=== PATIENT | female | born 1955 | race Caucasian/White ===

== ENCOUNTER 2016-09-25 19:46 | Emergency (ER) | payer MEDICAID ==
--- NOTE | 2016-09-25 20:10 | ED Physician Chart ---
Chief Complaint/HPI - Patient Information Date Seen:: 09/25/16 Time Seen:: 20:00 Chief Complaint:: possible urinary tract infection and agitation History of Present Illness:: Patient was sent from her care home facility here for possible urinary tract infection and agitation. She states she feels fine. She has no medical complaint. She wants to return to her facility. Historian:: Patient, EMS Review of Systems - Review of Systems General/Constitutional: No fever, No chills Skin: No skin lesions Head: No headache Eyes: No loss of vision ENT: No earache Neck: No neck pain, No swelling Cardio Vascular: No chest pain, No palpitations Pulmonary: No SOB GI: No nausea, No vomiting G/U: No dysuria Musculoskeletal: No bone or joint pain, No back pain Psychiatric: Prior psych history Hematopoietic: No bruising, No lymphadenopathy Neurological: No syncope, No headache Past Medical History - Past Medical History Past Medical History: HTN, DM, Thyroid disorder, Other (anemia ;) Family History: Other (anemia; hypothyroidism; depression; psychosis; cardiomyopathy) Social History: Smoker, Care Facility Surgical History: Psychiatricy History: Other (psychosis) Medication: Reviewed Family Medical History - Family Member Mother History Unknown: Yes Physical Exam - Physical Examination General/Constitutional: Well-developed, well-nourished, Alert, No distress Head: Atraumatic Eyes: Lids, conjuctiva normal, PERRL Skin: Nl inspection, No rash, No skin lesions, No ecchymosis ENMT: External ears, nose nl, TM canals nl, Nasal exam nl, Lips, teeth, gums nl , Oropharynx nl, Tonsils nl Neck: No stridor Respiratory: Nl effort/Exclusion, Clear to Auscultation, No Wheeze/Rhonchi/Rales Cardio Vascular: RRR, No murmur, gallop, rubs GI: No tenderness/rebounding/guarding, No organomegaly, No hernia, Normal BS's : No CVA tenderness Extremities: No tenderness or effusion, Full ROM Neuro/Psych: Alert/oriented, No focal deficits Labs/Radiology/EKG Results - Radiology Results Results: Laboratory Results - last 24 hr 09/25/16 09/25/16 20:13 20:13 WBC 11.4 H RBC 4.50 Hgb 12.9 Hct 38.8 MCV 86.4 MCH 28.8 MCHC Differential 33.3 RDW 12.5 Plt Count 237 MPV 9.1 Neutrophils % 56.3 Lymphocytes % 33.4 Monocytes % 6.9 Eosinophils % 3.1 Basophils % 0.3 Sodium 136 Potassium 4.2 Chloride 107 Carbon Dioxide 20.8 L Anion Gap 12.4 BUN 36 H Creatinine 1.6 H Est GFR ( Amer) 42.1 Est GFR (Non-Af Amer) 34.8 BUN/Creatinine Ratio 22.5 Glucose 88 Calcium 10.2 Laboratory Results - last 24 hr 09/25/16 09/25/16 20:13 20:13 WBC 11.4 H RBC 4.50 Hgb 12.9 Hct 38.8 MCV 86.4 MCH 28.8 MCHC Differential 33.3 RDW 12.5 Plt Count 237 MPV 9.1 Neutrophils % 56.3 Lymphocytes % 33.4 Monocytes % 6.9 Eosinophils % 3.1 Basophils % 0.3 Sodium 136 Potassium 4.2 Chloride 107 Carbon Dioxide 20.8 L Anion Gap 12.4 BUN 36 H Creatinine 1.6 H Est GFR ( Amer) 42.1 Est GFR (Non-Af Amer) 34.8 BUN/Creatinine Ratio 22.5 Glucose 88 Calcium 10.2 Assessment - Assessment General Assessment: talked to Dr. Heath at 2242 and he felt patient can return to her facility. Patient does not appear to have a urinary tract infection. ED Septic Shock - . Is Septic Shock (SBP<90, OR Lactate>4 mmol\L) present?: No Reassessment (Disposition) - Reassessment Reassessment Condition:: Unchanged - Diagnosis Diagnosis:: Agitation - Patient Disposition Discharge/Transfer:: Snf Care - SNF Condition at Disposition:: Stable, Unchanged
[2016-09-25 20:18] LABS: % BASOPHILS 0.3 % (0.0-2.0); % EOSINOPHILS 3.1 % (0.0-5.0); % LYMPHOCYTES 33.4 % (20.0-50.0); % MONOCYTES 6.9 % (2.0-10.0); % NEUTROPHILS 56.3 % (40.0-80.0); HEMATOCRIT 38.8 % (35.0-45.0); HEMOGLOBIN 12.9 gm/dL (11.7-15.5); MEAN CELL VOLUME 86.4 fl (81-100); MEAN CORPUSCULAR HEMOGLOBIN 28.8 pg (27.0-31.0); MEAN CORPUSCULAR HGB CONC 33.3 pg (28.0-36.0); MEAN PLATELET VOLUME 9.1 fl; NEUTROPHILE ABSOLUTE 6.4 Th/cmm (1.8-8.0); PLATELET COUNT 237 Th/cmm (150-400); RED CELL DISTRIBUTION WIDTH 12.5 % (11.5-20.0); WHITE BLOOD COUNT 11.4 Th/cmm (4.8-10.8)
[2016-09-25 20:34] LABS: ANION GAP 12.4 (7.0-16.0); BUN/CREATININE RATIO 22.5; CALCIUM SERUM 10.2 mg/dL (8.6-10.3); CARBON DIOXIDE 20.8 mEq/L (21.0-31.0); CREATININE - SERUM 1.6 mg/dL (0.6-1.2); POTASSIUM SERUM 4.2 mEq/L (3.5-5.1)
[2016-09-25 21:58] LABS: URINE BILIRUBIN SMALL (NEGATIVE); URINE BLOOD NEGATIVE (NEGATIVE); URINE COLOR YELLOW; URINE GLUCOSE (UA) NEGATIVE (NEGATIVE); URINE KETONE TRACE mg/dL (NEGATIVE); URINE PROTEIN 30 mg/dL (NEGATIVE); URINE UROBILINOGEN 0.2 E.U./dL (0.2 - 1.0)
[2016-09-25 21:59] LABS: URINE BACTERIA NONE SEEN /hpf (NONE SEEN); URINE EPITHELIAL CELLS FEW /lpf (FEW); URINE RBC NONE SEEN /hpf (0-5)
== END 2016-09-25 23:30 ==
LOC: ER 19:46
DX: R45.1 Restlessness and agitation (principal); I10 Essential (primary) hypertension; E11.9 Type 2 diabetes mellitus without complications; E07.9 Disorder of thyroid, unspecified; F17.200 Nicotine dependence, unspecified, uncomplicated
CPT/HCPCS: 36415-UA; 80048-TC; 81001-TC; 85025-TC; Z7502; Z7610

== ENCOUNTER 2016-11-20 17:19 | Inpatient (IN) | payer MEDICAID, OTHER ==
--- NOTE | 2016-11-20 17:48 | ED Physician Chart ---
Chief Complaint/HPI - Patient Information Date Seen:: 11/20/16 Time Seen:: 17:35 Chief Complaint:: generalized weakness and increasing confusion History of Present Illness:: [facility] for generalized weakness and increasing confusion. Patient complains of a mass in her right breast Allergies:: Allergies Allergy/AdvReac Type Severity Reaction Status Date / Time No Known Allergies Allergy Verified 09/25/16 20:27 Historian:: Patient Review:: Nurse's Note Reviewed Review of Systems - Review of Systems General/Constitutional: No fever, No chills, Weakness Skin: No skin lesions Head: No headache Eyes: No loss of vision ENT: No earache Neck: No neck pain, No swelling Cardio Vascular: No chest pain, No palpitations Pulmonary: No SOB GI: No nausea G/U: No dysuria Musculoskeletal: No bone or joint pain Endocrine: No polyuria Psychiatric: Prior psych history Past Medical History - Past Medical History Past Medical History: HTN, DM, Dyslipidemia, Other (anemia; hypothyroidism; major depression; psychosis; cardiomyopathy; breast implant) Family History: Other (unavailable; patient is confused) Social History: Smoker, Care Facility Surgical History: other (facial cosmetic surgery; breast implants; tubal ligation ) Psychiatricy History: Depression Medication: Reviewed Family Medical History - Family Member Mother History Unknown: Yes Physical Exam - Physical Examination General/Constitutional: Well-developed, well-nourished, Alert, No distress Other Gen/Cons comments:: Patient is confused. She does not know the correct year. Head: Atraumatic Eyes: Lids, conjuctiva normal, PERRL Skin: No rash, No skin lesions, No ecchymosis Other Skin comments:: Implant right breast appears to be in a superior position ENMT: External ears, nose nl, Lips, teeth, gums nl, Oropharynx nl Neck: No nuchal rigidity Respiratory: Nl effort/Exclusion, Clear to Auscultation Cardio Vascular: RRR, No murmur, gallop, rubs GI: No tenderness/rebounding/guarding : No CVA tenderness Extremities: No tenderness or effusion Neuro/Psych: No focal deficits Misc: No paraspinal tenderness Labs/Radiology/EKG Results - Lab Results Comments:: Laboratory Results - last 24 hr 11/20/16 11/20/16 11/20/16 18:00 18:00 18:00 WBC 10.6 RBC 3.81 Hgb 11.4 L Hct 33.0 L D MCV 86.8 MCH 29.9 MCHC Differential 34.5 RDW 13.2 Plt Count 190 MPV 10.5 Neutrophils % 55.1 Lymphocytes % 33.9 Monocytes % 9.6 Eosinophils % 1.0 Basophils % 0.4 Sodium 139 Potassium 3.8 Chloride 110 H Carbon Dioxide 21.0 Anion Gap 11.8 BUN 40 H Creatinine 1.1 Est GFR ( Amer) > 60.0 Est GFR (Non-Af Amer) 53.7 BUN/Creatinine Ratio 36.4 Glucose 80 Calcium 9.9 Total Bilirubin 0.4 AST 19 ALT 16 Alkaline Phosphatase 55 Ammonia 40 Total Protein 7.5 Albumin 4.3 Globulin 3.2 Albumin/Globulin Ratio 1.3 TSH 18.95 H Urine Source Urine Color Urine Clarity Urine pH Ur Specific [place] Urine Protein Urine Glucose (UA) Urine Ketones Urine Blood Urine Nitrate Urine Bilirubin Urine Urobilinogen Ur Leukocyte Esterase Urine RBC Urine WBC Ur Epithelial Cells Urine Bacteria 11/20/16 18:30 WBC RBC Hgb Hct MCV MCH MCHC Differential RDW Plt Count MPV Neutrophils % Lymphocytes % Monocytes % Eosinophils % Basophils % Sodium Potassium Chloride Carbon Dioxide Anion Gap BUN Creatinine Est GFR ( Amer) Est GFR (Non-Af Amer) BUN/Creatinine Ratio Glucose Calcium Total Bilirubin AST ALT Alkaline Phosphatase Ammonia Total Protein Albumin Globulin Albumin/Globulin Ratio TSH Urine Source RANDOM Urine Color YELLOW Urine Clarity SLIGHT CLOUDY Urine pH 5.5 Ur Specific [place] 1.025 Urine Protein TRACE Urine Glucose (UA) NEGATIVE Urine Ketones NEGATIVE Urine Blood NEGATIVE Urine Nitrate POSITIVE H Urine Bilirubin NEGATIVE Urine Urobilinogen 1.0 Ur Leukocyte Esterase TRACE H Urine RBC NONE SEEN Urine WBC 2-5 Ur Epithelial Cells NONE SEEN Urine Bacteria MANY - Radiology Results Results: CXR negative; CT head atrophy - EKG Interpretations Rate & Rhythm: sinus tach; rate 192; normal axis; frequent unfocal PVCs. Assessment - Assessment General Assessment: Patient agitated in the ED. Had to be given ativan 2 mg IV x 2 to sedate her. ED Septic Shock - . Is Septic Shock (SBP<90, OR Lactate>4 mmol\L) present?: No Reassessment (Disposition) - Reassessment Reassessment Condition:: Improved - Diagnosis Diagnosis:: dementia with agitation; hypothyroidism; frequent PVCs - Patient Disposition Admitted to:: Telemetry Spoke to:: Andrews Oscar Admitting Medical Physician:: Andrews Oscar Condition at Disposition:: Stable, Improved
[2016-11-20 18:13] LABS: % BASOPHILS 0.4 % (0.0-2.0); % LYMPHOCYTES 33.9 % (20.0-50.0); % MONOCYTES 9.6 % (2.0-10.0); % NEUTROPHILS 55.1 % (40.0-80.0); HEMOGLOBIN 11.4 gm/dL (11.7-15.5); MEAN CELL VOLUME 86.8 fl (81-100); MEAN CORPUSCULAR HEMOGLOBIN 29.9 pg (27.0-31.0); MEAN CORPUSCULAR HGB CONC 34.5 pg (28.0-36.0); MEAN PLATELET VOLUME 10.5 fl; NEUTROPHILE ABSOLUTE 5.9 Th/cmm (1.8-8.0); PLATELET COUNT 190 Th/cmm (150-400); RED BLOOD COUNT 3.81 Mil/cmm (3.80-5.10); RED CELL DISTRIBUTION WIDTH 13.2 % (11.5-20.0); WHITE BLOOD COUNT 10.6 Th/cmm (4.8-10.8)
[2016-11-20 18:32] LABS: ALB/GLOB RATIO 1.3 (1.0-1.8); ALKALINE PHOSPHATASE 55 U/L (34-104); ANION GAP 11.8 (7.0-16.0); BILIRUBIN,TOTAL 0.4 mg/dL (0.3-1.0); BUN - UREA NITROGEN 40 mg/dL (7-25); BUN/CREATININE RATIO 36.4; CALCIUM SERUM 9.9 mg/dL (8.6-10.3); CHLORIDE 110 mEq/L (98-107); CREATININE - SERUM 1.1 mg/dL (0.6-1.2); GLUCOSE 80 mg/dL (70-105); POTASSIUM SERUM 3.8 mEq/L (3.5-5.1); SGOT 19 U/L (13-39); SGPT/ALT 16 U/L (7-52); SODIUM SERUM 139 mEq/L (136-145)
[2016-11-20 18:57] LABS: URINE BILIRUBIN NEGATIVE (NEGATIVE); URINE BLOOD NEGATIVE (NEGATIVE); URINE GLUCOSE (UA) NEGATIVE (NEGATIVE); URINE KETONE NEGATIVE (NEGATIVE); URINE PH 5.5 (4.6 - 8.0); URINE PROTEIN TRACE mg/dL (NEGATIVE)
[2016-11-20 18:59] LABS: URINE COLOR YELLOW
[2016-11-20 19:01] LABS: URINE BACTERIA MANY /hpf (NONE SEEN); URINE EPITHELIAL CELLS NONE SEEN /lpf (FEW); URINE RBC NONE SEEN /hpf (0-5)
[2016-11-20 19:12] LABS: TSH 18.95 uIU/ml (0.34-5.60)
[2016-11-20] MEDS ORDERED: Fleet Enema 135 mL RC PRN (22:54)
[2016-11-20] MEDS ORDERED: Magnesium Hydroxide (MOM) 30 mL UDC PO PRN (22:54)
[2016-11-20] MEDS ORDERED: guaiFENesin 200 MG/10 ML UDC PO PRN (22:58)
[2016-11-20] MEDS ORDERED: Albuterol Nebulizer 2.5mg/3mL HHN PRN (22:58)
[2016-11-20] MEDS ORDERED: Ipratropium Neb 0.5 mg/2.5 mL UD IH PRN (22:58)
[2016-11-20] MEDS ORDERED: Maalox 30 mL Cup PO PRN (22:58)
[2016-11-21] MEDS: D5-0.9%NS 1,000 ML IV SCH ×2 (02:21→21:12)
[2016-11-21 05:07] VITALS: BP 108/56
--- NOTE | 2016-11-21 08:30 | Diagnostic Imaging Report ---
Portable chest x-ray Time: 1842 History: Pneumonia Allowing for portable technique the heart size is normal. No focal pulmonary parenchymal processes. No hilar or mediastinal abnormalities. Impression: No acute abnormalities.
[2016-11-21] MEDS: Aspirin 81mg Chewable Tab PO SCH (08:47)
--- NOTE | 2016-11-21 09:28 | Diagnostic Imaging Report ---
CT scan of the brain without intravenous contrast HISTORY: Stroke, CVA Total DLP equals 540 CTDI equals 30.5 Axial sections were obtained from the base of the skull to the vertex. There is enlargement of the ventricular system along with enlargement of cerebral sulci and subarachnoid cisterns reflecting generalized atrophy. Hypodensity is noted throughout the supratentorial white matter regions without mass effect. The findings may be associated with chronic small vessel ischemic disease. Somewhat more discrete hypodense focus noted in the left basal ganglia region that may be associated with an old lacunar infarct. No acute intracerebral hemorrhage. No extra-axial masses or abnormal fluid collections. IMPRESSION: 1. No acute abnormalities 2. Cerebral atrophy 3. Supratentorial white matter changes that may reflect chronic small vessel ischemic disease. If needed, a follow-up MRI exam would be helpful for further assessment. 4. Somewhat more discrete focus in the left basal ganglia region that may be associated with old lacunar infarct.
--- NOTE | 2016-11-21 18:13 | History & Physical ---
ADMIT DATE: 11/21/2016 CHIEF COMPLAINT: Increasing agitation, generalized weakness, not eating. HISTORY OF PRESENT ILLNESS: This is a 61-year-old female with history of schizoaffective disorder, history of stroke, hypothyroidism, who was admitted from nursing facility secondary to increasing agitation. The patient was evaluated in the ER and noted to have a UTI and frequent PVCs. The patient is a poor historian, agitated, yelling. PAST MEDICAL HISTORY: As mentioned in history present illness. PAST SURGICAL HISTORY: Unable to obtain. ALLERGIES: No known drug allergies. MEDICATIONS: Tylenol, aspirin, albuterol, Atrovent, Colace, ibuprofen, Zyprexa, senna. FAMILY HISTORY: Noncontributory. SOCIAL HISTORY: The [facility] patient requiring 24-hour total care. REVIEW OF SYSTEMS: This is limited secondary to the patient's current mental state. We will try to obtain more detailed review of systems at a later date via daughter and family members. There is ____ daughter [phone]. Also, try to get information from nursing staff and try [phone]. Also, try to get information from Dr. Heath who was attended the patient previously. PHYSICAL EXAMINATION: VITAL SIGNS: Blood pressure ____, respirations 18, pulse 58, temperature is 71. GENERAL: Elderly female, appears chronically ill. NECK: Supple. No mass. LUNGS: Decreased breath sounds, few rhonchi. HEART: Regular rate and rhythm without appreciable murmurs. ABDOMEN: Soft, nontender. EXTREMITIES: Positive excoriation. LABORATORY DATA: WBC 10.6, hemoglobin 11.4, platelets 190. Sodium 139, potassium 3.8, BUN 14, creatinine 1.1. TSH 18. UA: Positive esterase and nitrate and many bacteria. ASSESSMENT AND PLAN: Urinary tract infection, cardiac arrhythmia, generalized weakness, agitation, anemia, dehydration, renal failure, hypothyroidism, history of stroke, schizoaffective disorder. We will continue the patient on IV hydration and antibiotic. We will refer the patient to Psych as well as Cardiology. We will perform 2D echo. Continue with current care with followup consult and recommendations. JOB# [id number]
--- NOTE | 2016-11-22 01:50 | Consultation ---
DATE OF CONSULTATION: 11/21/2016 PATIENT OF: Dr. Oscar. HISTORY AND PHYSICAL: This is a 61-year-old female patient who has schizophrenia. The patient has agitation. Following this, the patient was brought to the Emergency Room. The patient was found to have PVCs and urinary tract infection, hence the patient was admitted. PAST MEDICAL HISTORY: Dementia, hypothyroid, CVA with late effect schizoaffective disorder. FAMILY HISTORY: Unremarkable. SOCIAL HISTORY: No history of smoking, alcohol abuse. ALLERGIES: None. PHYSICAL EXAMINATION: VITAL SIGNS: Blood pressure 130/80, pulse 70 irregular, respirations 20. HEAD: Normocephalic. No lumps or bumps. EYES: Pupils equal, reactive to light. Fundi show AV nicking, sclerae white, conjunctivae pink. NECK: Carotid 2+. Normal upstroke. JVD flat. Thyroid not palpable. NODES: Lymph nodes not palpable. CHEST: Shows increased AP diameter. No kyphosis, scoliosis. LUNGS: Bilateral bronchovesicular breath sounds. HEART: PMI fifth intercostal space lateral to midclavicular line. S1, S2. No S3, S4. Systolic murmur, grade 2/6, lower left sternal border without radiation. ABDOMEN: Soft. Liver and spleen not palpable. No organomegaly. Bowel sounds active. NEUROLOGIC: Unremarkable. EXTREMITIES: Peripheral pulses 2+. No pedal edema. CLINICAL IMPRESSION: Premature ventricular contractions, hypothyroid, dementia, urinary tract infection, cerebrovascular accident with late effect schizoaffective disorder. PLAN: We will get serum magnesium levels. Start the patient on amiodarone 100 mg b.i.d. and IV antibiotics for urinary tract infection. JOB# [id number]
--- NOTE | 2016-11-22 07:57 | Consultation ---
DATE OF CONSULTATION: 11/21/2016 IDENTIFYING INFORMATION: The patient is a 61-year-old female. HISTORY OF PRESENT ILLNESS: This patient who came, she was very confused. She came because of the lump in her breast. She has been agitated, crying and screaming. When I talked to her, she was yelling at the nursing asking to go home. She was a poor historian, unable to tell me her age. She believes she is 50 years of age. She said she does not pay attention to it when I asked about the date. 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 The patient is unable to participate in a meaningful conversation; however, she was able to tell me some information about her family, but she denies that she wants to harm herself or anybody. PAST PSYCHIATRIC HISTORY: She admits to seeing a psychiatrist, however, she is unable to tell me why. She denies prior suicide attempt. She has a history of substance abuse. Unable to give me details. She is demented and confused. MEDICAL HISTORY: Deferred to the medical doctor. ALLERGIES: The patient has been on Zyprexa 15 mg at bedtime. FAMILY AND SOCIAL HISTORY: The patient reports she is . She has 2 daughters, when asked about them, she said they are 1 year apart. She has been living in a nursing facility. Unable to tell if there is any family psychiatric disorder or substance abuse or legal problem. MENTAL STATUS EXAMINATION: The patient is appropriately dressed, not very well groomed. She is incontinent. She was yelling send me home, unable to tell me at times for self-care or answer questions appropriately, long- and short-term memory is poor. She denies that she will harm herself or anybody, wanting to go home. She has been very confused and agitated. Her insight and judgment is impaired. IMPRESSION: AXIS I: Mood disorder, not otherwise specified. MEDICAL DIAGNOSES: Deferred to Dr. Oscar. I would recommend continue on Zyprexa. The patient knows if continues to be agitated, may need to transfer to [facility]. Thank you very much for allowing me to participate in the care of this most interesting lady. [facility]# [id number]
[2016-11-22] MEDS: Aspirin 81mg Chewable Tab PO SCH (09:42)
[2016-11-22] MEDS ORDERED: Mag Sulfate 2gm/50mL Premix 2 GM/50 ML BAG IV ONE (14:21)
--- NOTE | 2016-11-22 14:24 | Internal Medicine Prog Note ---
Internal Medicine Subjective - Subjective Patient seen and examined:: with staff, chart reviewed Patient is:: awake, verbal, non-interactive, agitated, confused Patient Complaints of:: congestion Per staff patient has:: no adverse event, poor appetite, poor oral intake, agitated, combative, noncompliant, confused, tolerating meds Internal Medicine Objective - Results Result Diagrams: 11/20/16 18:00 11/20/16 18:00 Recent Labs: Laboratory Last Values WBC 10.6 Th/cmm (4.8-10.8) 11/20/16 18:00 RBC 3.81 Mil/cmm (3.80-5.10) 11/20/16 18:00 Hgb 11.4 gm/dL (11.7-15.5) L 11/20/16 18:00 Hct 33.0 % (35.0-45.0) L D 11/20/16 18:00 MCV 86.8 fl (81-100) 11/20/16 18:00 MCH 29.9 pg (27.0-31.0) 11/20/16 18:00 MCHC Differential 34.5 pg (28.0-36.0) 11/20/16 18:00 RDW 13.2 % (11.5-20.0) 11/20/16 18:00 Plt Count 190 Th/cmm (150-400) 11/20/16 18:00 MPV 10.5 fl 11/20/16 18:00 Neutrophils % 55.1 % (40.0-80.0) 11/20/16 18:00 Lymphocytes % 33.9 % (20.0-50.0) 11/20/16 18:00 Monocytes % 9.6 % (2.0-10.0) 11/20/16 18:00 Eosinophils % 1.0 % (0.0-5.0) 11/20/16 18:00 Basophils % 0.4 % (0.0-2.0) 11/20/16 18:00 Sodium 139 mEq/L (136-145) 11/20/16 18:00 Potassium 3.8 mEq/L (3.5-5.1) 11/20/16 18:00 Chloride 110 mEq/L (98-107) H 11/20/16 18:00 Carbon Dioxide 21.0 mEq/L (21.0-31.0) 11/20/16 18:00 Anion Gap 11.8 (7.0-16.0) 11/20/16 18:00 BUN 40 mg/dL (7-25) H 11/20/16 18:00 Creatinine 1.1 mg/dL (0.6-1.2) 11/20/16 18:00 Est GFR ( Amer) > 60.0 ml/min (>90) 11/20/16 18:00 Est GFR (Non-Af Amer) 53.7 ml/min 11/20/16 18:00 BUN/Creatinine Ratio 36.4 11/20/16 18:00 Glucose 80 mg/dL (70-105) 11/20/16 18:00 Calcium 9.9 mg/dL (8.6-10.3) 11/20/16 18:00 Magnesium 1.8 mg/dL (1.9-2.7) L 11/22/16 06:40 Total Bilirubin 0.4 mg/dL (0.3-1.0) 11/20/16 18:00 AST 19 U/L (13-39) 11/20/16 18:00 ALT 16 U/L (7-52) 11/20/16 18:00 Alkaline Phosphatase 55 U/L (34-104) 11/20/16 18:00 Ammonia 40 umol/L (16-53) 11/20/16 18:00 Total Protein 7.5 gm/dL (6.0-8.3) 11/20/16 18:00 Albumin 4.3 gm/dL (3.7-5.3) 11/20/16 18:00 Globulin 3.2 gm/dL 11/20/16 18:00 Albumin/Globulin Ratio 1.3 (1.0-1.8) 11/20/16 18:00 TSH 18.95 uIU/ml (0.34-5.60) H 11/20/16 18:00 Urine Source RANDOM 11/20/16 18:30 Urine Color YELLOW 11/20/16 18:30 Urine Clarity SLIGHT CLOUDY (CLEAR) 11/20/16 18:30 Urine pH 5.5 (4.6 - 8.0) 11/20/16 18:30 Ur Specific [place] 1.025 (1.005-1.030) 11/20/16 18:30 Urine Protein TRACE mg/dL (NEGATIVE) 11/20/16 18:30 Urine Glucose (UA) NEGATIVE mg/dL (NEGATIVE) 11/20/16 18:30 Urine Ketones NEGATIVE mg/dL (NEGATIVE) 11/20/16 18:30 Urine Blood NEGATIVE (NEGATIVE) 11/20/16 18:30 Urine Nitrate POSITIVE (NEGATIVE) H 11/20/16 18:30 Urine Bilirubin NEGATIVE (NEGATIVE) 11/20/16 18:30 Urine Urobilinogen 1.0 E.U./dL (0.2 - 1.0) 11/20/16 18:30 Ur Leukocyte Esterase TRACE (NEGATIVE) H 11/20/16 18:30 Urine RBC NONE SEEN /hpf (0-5) 11/20/16 18:30 Urine WBC 2-5 /hpf (0-5) 11/20/16 18:30 Ur Epithelial Cells NONE SEEN /lpf (FEW) 11/20/16 18:30 Urine Bacteria MANY /hpf (NONE SEEN) 11/20/16 18:30 - Physical Exam Vitals and I&O: Vital Signs Temp 98.0 F 11/22/16 08:00 Pulse 97 11/22/16 08:00 Resp 18 11/22/16 08:00 BP 113/72 11/22/16 08:00 Pulse Ox 97 11/22/16 08:00 Intake & Output 11/21/16 11/22/16 11/22/16 18:59 06:59 18:59 Intake Total 1000 240 Balance 1000 240 Weight (lbs) 65.771 kg 64.864 kg Intake: Intake, IV Amount 1000 D5-0.9%Ns 1,000 ml @ 80 1000 mls/hr IV .[id number] [facility] Rx #:[id number] Oral 240 Other: # Voids 3 # Bowel Movements 0 Stool Characteristics Soft Active Medications: Current Medications Acetaminophen (Tylenol) 650 mg PO Q4H PRN PRN Reason: Pain Or Fever above 101 Stop: 01/19/17 22:57 Last Admin: 11/21/16 15:23 Dose: 650 mg Al Hydrox/Mg Hydrox/Simethicone (Maalox) 30 ml PO Q6H PRN PRN Reason: Dyspepsia Stop: 01/19/17 22:57 Albuterol Sulfate (Albuterol 2.5mg/3ml Neb Ud) 2.5 mg HHN Q2HRT PRN PRN Reason: Shortness of Breath or Wheeze Stop: 01/19/17 22:57 Aspirin (Aspirin Chewable) 81 mg PO DAILY [facility] Stop: 01/20/17 08:59 Last Admin: 11/22/16 09:42 Dose: 81 mg Bisacodyl (Dulcolax 10 Mg Supp) 10 mg RC DAILY PRN PRN Reason: Constipation Stop: 01/19/17 22:53 Divalproex Sodium (Depakote Dr) 500 mg PO BID [facility] PRN Reason: Protocol Stop: 01/20/17 08:59 Last Admin: 11/22/16 09:42 Dose: 500 mg Docusate Sodium (Colace) 100 mg PO DAILY [facility] Stop: 01/20/17 08:59 Last Admin: 11/22/16 09:43 Dose: 100 mg Guaifenesin (Robitussin) 200 mg PO Q4HR PRN PRN Reason: Cough or Congestion Stop: 01/19/17 22:57 Heparin Sodium (Porcine) (Heparin) 5,000 units SUBQ Q12HR [facility] Stop: 01/20/17 08:59 Last Admin: 11/22/16 09:43 Dose: 5,000 units Dextrose/Sodium Chloride (D5-0.9%Ns) 1,000 mls @ 80 mls/hr IV .[id number] [facility] Stop: 01/19/17 22:59 Last Admin: 11/21/16 21:12 Dose: 80 mls/hr Magnesium Sulfate (Magnesium Sulfate Premix) 2 gm in 50 mls @ 25 mls/hr IV X1 ONE Stop: 11/22/16 16:20 Ibuprofen (Motrin) 600 mg PO Q6HR PRN PRN Reason: Pain (Moderate) Stop: 01/19/17 22:53 Last Admin: 11/22/16 13:06 Dose: 600 mg Ipratropium [place] (Atrovent Neb 0.5mg/2.5ml) 0.5 mg IH Q2HRT PRN PRN Reason: Shortness of Breath or Wheeze Stop: 01/19/17 22:57 Levofloxacin (Levaquin) 250 mg PO DAILY [facility] Stop: 11/25/16 09:01 Last Admin: 11/22/16 09:41 Dose: 250 mg Lorazepam (Ativan) 0.5 mg PO Q6HR PRN; Protocol PRN Reason: Agitation Stop: 01/19/17 22:53 Last Admin: 11/22/16 12:56 Dose: 0.5 mg Magnesium Hydroxide (Milk Of Magnesia) 30 ml PO DAILY PRN PRN Reason: Constipation Stop: 01/19/17 22:53 Olanzapine (Zyprexa) 20 mg PO DAILY BRENDA PRN Reason: Protocol Stop: 01/20/17 08:59 Last Admin: 11/22/16 09:40 Dose: 20 mg Olanzapine (Zyprexa) 10 mg PO HS BRENDA PRN Reason: Protocol Stop: 01/20/17 20:59 Last Admin: 11/21/16 21:06 Dose: 10 mg Ondansetron HCl (Zofran) 4 mg IV Q8H PRN PRN Reason: Nausea / Vomiting Stop: 01/19/17 22:57 Senna (Senna) 8.6 mg PO DAILY BRENDA Stop: 01/20/17 08:59 Last Admin: 11/22/16 09:41 Dose: 8.6 mg Sodium Phosphate (Fleet Enema) 135 ml RC PRN PRN PRN Reason: Constipation Stop: 01/19/17 22:53 Thyroid ([place] Thyroid) 60 mg PO DAILY BRENDA Stop: 01/21/17 08:59 Last Admin: 11/22/16 09:43 Dose: 60 mg General: demented, obese, appears older HEENT: NC/AT, PERRLA, EOMI, dry oral mucosa Neck: Supple, No JVD Lungs: congested, rales Cardiovascular: RRR, Normal S1, Normal S2 Abdomen: soft, globular, positive bowel sound Extremities: excoriation, ecchymosis Neurological: no change, disorganized, muscle weakness, unable to follow command Internal Medicine Assmt/Plan - Assessment Assessment: uti pvc gen weakness anemia ri/azotemia hypothyroidism cva sad - Plan Plan: cont on iv abx iv hydration psych follow up card follow up dw dian cpm
[2016-11-22] MEDS: D5-0.9%NS 1,000 ML IV SCH ×2 (15:50→23:40)
--- NOTE | 2016-11-22 23:27 | Admit Criteria Form ---
Admit Criteria Forms - Admit Criteria Diagnosis: PSYCHIATRIC DISORDERS (Place 'X' for any and all applicable criteria): Ongoing inpatient care may be needed for 1 or more of the following(1)(2)(3)(4)( 6)(7)(8): [ ]I. Danger to self or others not manageable at lower level of care. [ ]II. Grave disability (eg, inability to perform self care necessary at lower level of care) [X ]III. Agitation or inappropriate behavior interfering with care for primary condition (eg, attempting to discontinue lines or drains prematurely, unable to cooperate with respiratory care) [ ]IV. Severe disability or disorder indicated by ALL of the following: [ ]a) Severe behavioral health disorder-related symptoms or condition indicated by 1 or more of the following: [ ]i) Severe problem with cognition, memory, judgment, or impulse control [ ]ii) Severe clinical manifestations (eg, hallucinations, delusions, other acute psychotic symptoms, dyana, extreme agitation or anxiety) [ ]b) Patient management at lower level of care is not feasible until acute intervention or modification is initiated. Extended stay beyond goal length of stay for the primary condition may be needed until ALLof the following are present(1)(2)(3)(4)(722)(23): [ ]a) Danger to self or others is absent or manageable at lower level of care [ ]b) Behavior crisis management, including physical or chemical restraints, is required and is not available at a lower level of care. [ ]c) Behavioral symptoms (e.g., agitation, somnolence, inappropriate behavior) are present, and are not manageable at a lower level of care. [ ]d) Patient cannot understand follow-up treatment and crisis plan. [ ]e) Provider and supports are sufficiently available at lower level of care. [ ]f) Patient can participate (e.g., verify absence of plan for harm) and is in needed of monitoring. The original [facility] [employer] content created by [facility] has been revised. The portions of the content which have been revised are identified through the use of italic text or in bold, and [facility] [employer] has neither reviewed nor approved the modified material. All other unmodified content is copyright [facility] [employer]. Please see references footnoted in the original [facility] edition 2017 Admit Criteria Met?: Yes
--- NOTE | 2016-11-23 03:57 | Progress Notes ---
DATE: 11/22/2016 Case discussed with staff of the patient, reviewed records. The patient continues to be confused, continues to be unable to make safe plan for self-care. Continues to have poor insight. Continues to have episodes of yelling, screaming, unpredictable, and impulsive. She is compliant with the medication with no side effects, no sedation, no nausea. She is on Zyprexa 15 mg at bedtime and Depakote 500 mg twice a day. We will continue to work with the patient in group. Thank you very much for allowing me to participate in the care of this most interesting lady. JOB# [id number]
[2016-11-23] MEDS: Aspirin 81mg Chewable Tab PO SCH (09:41)
--- NOTE | 2016-11-23 12:29 | Internal Medicine Prog Note ---
Internal Medicine Subjective - Subjective Patient seen and examined:: with staff, chart reviewed, other (still very agitated) Patient is:: awake, verbal, non-interactive, agitated, confused Patient Complaints of:: congestion Per staff patient has:: no adverse event, poor appetite, poor oral intake, agitated, combative, noncompliant, confused, tolerating meds Internal Medicine Objective - Results Result Diagrams: 11/20/16 18:00 11/20/16 18:00 Recent Labs: Laboratory Last Values WBC 10.6 Th/cmm (4.8-10.8) 11/20/16 18:00 RBC 3.81 Mil/cmm (3.80-5.10) 11/20/16 18:00 Hgb 11.4 gm/dL (11.7-15.5) L 11/20/16 18:00 Hct 33.0 % (35.0-45.0) L D 11/20/16 18:00 MCV 86.8 fl (81-100) 11/20/16 18:00 MCH 29.9 pg (27.0-31.0) 11/20/16 18:00 MCHC Differential 34.5 pg (28.0-36.0) 11/20/16 18:00 RDW 13.2 % (11.5-20.0) 11/20/16 18:00 Plt Count 190 Th/cmm (150-400) 11/20/16 18:00 MPV 10.5 fl 11/20/16 18:00 Neutrophils % 55.1 % (40.0-80.0) 11/20/16 18:00 Lymphocytes % 33.9 % (20.0-50.0) 11/20/16 18:00 Monocytes % 9.6 % (2.0-10.0) 11/20/16 18:00 Eosinophils % 1.0 % (0.0-5.0) 11/20/16 18:00 Basophils % 0.4 % (0.0-2.0) 11/20/16 18:00 Sodium 139 mEq/L (136-145) 11/20/16 18:00 Potassium 3.8 mEq/L (3.5-5.1) 11/20/16 18:00 Chloride 110 mEq/L (98-107) H 11/20/16 18:00 Carbon Dioxide 21.0 mEq/L (21.0-31.0) 11/20/16 18:00 Anion Gap 11.8 (7.0-16.0) 11/20/16 18:00 BUN 40 mg/dL (7-25) H 11/20/16 18:00 Creatinine 1.1 mg/dL (0.6-1.2) 11/20/16 18:00 Est GFR ( Amer) > 60.0 ml/min (>90) 11/20/16 18:00 Est GFR (Non-Af Amer) 53.7 ml/min 11/20/16 18:00 BUN/Creatinine Ratio 36.4 11/20/16 18:00 Glucose 80 mg/dL (70-105) 11/20/16 18:00 Calcium 9.9 mg/dL (8.6-10.3) 11/20/16 18:00 Magnesium 1.8 mg/dL (1.9-2.7) L 11/22/16 06:40 Total Bilirubin 0.4 mg/dL (0.3-1.0) 11/20/16 18:00 AST 19 U/L (13-39) 11/20/16 18:00 ALT 16 U/L (7-52) 11/20/16 18:00 Alkaline Phosphatase 55 U/L (34-104) 11/20/16 18:00 Ammonia 40 umol/L (16-53) 11/20/16 18:00 Total Protein 7.5 gm/dL (6.0-8.3) 11/20/16 18:00 Albumin 4.3 gm/dL (3.7-5.3) 11/20/16 18:00 Globulin 3.2 gm/dL 11/20/16 18:00 Albumin/Globulin Ratio 1.3 (1.0-1.8) 11/20/16 18:00 TSH 18.95 uIU/ml (0.34-5.60) H 11/20/16 18:00 Urine Source RANDOM 11/20/16 18:30 Urine Color YELLOW 11/20/16 18:30 Urine Clarity SLIGHT CLOUDY (CLEAR) 11/20/16 18:30 Urine pH 5.5 (4.6 - 8.0) 11/20/16 18:30 Ur Specific [place] 1.025 (1.005-1.030) 11/20/16 18:30 Urine Protein TRACE mg/dL (NEGATIVE) 11/20/16 18:30 Urine Glucose (UA) NEGATIVE mg/dL (NEGATIVE) 11/20/16 18:30 Urine Ketones NEGATIVE mg/dL (NEGATIVE) 11/20/16 18:30 Urine Blood NEGATIVE (NEGATIVE) 11/20/16 18:30 Urine Nitrate POSITIVE (NEGATIVE) H 11/20/16 18:30 Urine Bilirubin NEGATIVE (NEGATIVE) 11/20/16 18:30 Urine Urobilinogen 1.0 E.U./dL (0.2 - 1.0) 11/20/16 18:30 Ur Leukocyte Esterase TRACE (NEGATIVE) H 11/20/16 18:30 Urine RBC NONE SEEN /hpf (0-5) 11/20/16 18:30 Urine WBC 2-5 /hpf (0-5) 11/20/16 18:30 Ur Epithelial Cells NONE SEEN /lpf (FEW) 11/20/16 18:30 Urine Bacteria MANY /hpf (NONE SEEN) 11/20/16 18:30 - Physical Exam Vitals and I&O: Vital Signs Temp 99.3 F 11/23/16 08:00 Pulse 65 11/23/16 08:00 Resp 18 11/23/16 08:00 BP 133/76 11/23/16 08:00 Pulse Ox 99 11/23/16 08:00 Intake & Output 11/22/16 11/23/16 11/23/16 18:59 06:59 18:59 Intake Total 1000 1093.333 Balance 1000 1093.333 Weight (lbs) 64.864 kg Intake: Intake, IV Amount 1000 973.333 D5-0.9%Ns 1,000 ml @ 80 1000 733.333 mls/hr IV .[id number] [facility] Rx #:[id number] Oral 120 Active Medications: Current Medications Acetaminophen (Tylenol) 650 mg PO Q4H PRN PRN Reason: Pain Or Fever above 101 Stop: 01/19/17 22:57 Last Admin: 11/23/16 11:59 Dose: 650 mg Al Hydrox/Mg Hydrox/Simethicone (Maalox) 30 ml PO Q6H PRN PRN Reason: Dyspepsia Stop: 01/19/17 22:57 Albuterol Sulfate (Albuterol 2.5mg/3ml Neb Ud) 2.5 mg HHN Q2HRT PRN PRN Reason: Shortness of Breath or Wheeze Stop: 01/19/17 22:57 Aspirin (Aspirin Chewable) 81 mg PO DAILY [facility] Stop: 01/20/17 08:59 Last Admin: 11/23/16 09:41 Dose: 81 mg Bisacodyl (Dulcolax 10 Mg Supp) 10 mg RC DAILY PRN PRN Reason: Constipation Stop: 01/19/17 22:53 Divalproex Sodium (Depakote Dr) 500 mg PO BID [facility] PRN Reason: Protocol Stop: 01/20/17 08:59 Last Admin: 11/23/16 09:40 Dose: 500 mg Docusate Sodium (Colace) 100 mg PO DAILY [facility] Stop: 01/20/17 08:59 Last Admin: 11/23/16 09:41 Dose: 100 mg Guaifenesin (Robitussin) 200 mg PO Q4HR PRN PRN Reason: Cough or Congestion Stop: 01/19/17 22:57 Heparin Sodium (Porcine) (Heparin) 5,000 units SUBQ Q12HR [facility] Stop: 01/20/17 08:59 Last Admin: 11/23/16 09:37 Dose: 5,000 units Dextrose/Sodium Chloride (D5-0.9%Ns) 1,000 mls @ 80 mls/hr IV .[id number] [facility] Stop: 01/19/17 22:59 Last Infusion: 11/23/16 01:30 Dose: 80 mls/hr Ibuprofen (Motrin) 600 mg PO Q6HR PRN PRN Reason: Pain (Moderate) Stop: 01/19/17 22:53 Last Admin: 11/22/16 23:32 Dose: 600 mg Ipratropium [place] (Atrovent Neb 0.5mg/2.5ml) 0.5 mg IH Q2HRT PRN PRN Reason: Shortness of Breath or Wheeze Stop: 01/19/17 22:57 Levofloxacin (Levaquin) 250 mg PO DAILY [facility] Stop: 11/25/16 09:01 Last Admin: 11/23/16 09:40 Dose: 250 mg Lorazepam (Ativan) 0.5 mg PO Q6HR PRN; Protocol PRN Reason: Agitation Stop: 01/19/17 22:53 Last Admin: 11/23/16 10:38 Dose: 0.5 mg Magnesium Hydroxide (Milk Of Magnesia) 30 ml PO DAILY PRN PRN Reason: Constipation Stop: 01/19/17 22:53 Olanzapine (Zyprexa) 20 mg PO DAILY [facility]ENDA PRN Reason: Protocol Stop: 01/20/17 08:59 Last Admin: 11/23/16 09:40 Dose: 20 mg Olanzapine (Zyprexa) 10 mg PO HS BRENDA PRN Reason: Protocol Stop: 01/20/17 20:59 Last Admin: 11/22/16 23:33 Dose: 10 mg Ondansetron HCl (Zofran) 4 mg IV Q8H PRN PRN Reason: Nausea / Vomiting Stop: 01/19/17 22:57 Last Admin: 11/22/16 23:31 Dose: 4 mg Senna (Senna) 8.6 mg PO DAILY [facility] Stop: 01/20/17 08:59 Last Admin: 11/23/16 09:41 Dose: 8.6 mg Sodium Phosphate (Fleet Enema) 135 ml RC PRN PRN PRN Reason: Constipation Stop: 01/19/17 22:53 Thyroid ([place] Thyroid) 60 mg PO DAILY [facility] Stop: 01/21/17 08:59 Last Admin: 11/23/16 09:40 Dose: 60 mg General: demented, obese, appears older HEENT: NC/AT, PERRLA, EOMI, dry oral mucosa Neck: Supple, No JVD Lungs: congested, rales Cardiovascular: RRR, Normal S1, Normal S2 Abdomen: soft, globular, positive bowel sound Extremities: excoriation, ecchymosis Neurological: no change, disorganized, muscle weakness, unable to follow command Internal Medicine Assmt/Plan - Assessment Assessment: uti pvc gen weakness anemia ri/azotemia hypothyroidism cva sad - Plan Plan: cont on iv abx iv hydration psych follow up card follow up paulina biggs cpm posiible psych transfer
[2016-11-24] MEDS: D5-0.9%NS 1,000 ML IV SCH (00:21)
--- NOTE | 2016-11-24 04:18 | Progress Notes ---
DATE: 11/23/2016 Case was discussed with staff of the patient, reviewed records. The patient continues to do the same, very poor insight, unable to make safe plan for self care. Sleeping better, eating better, compliant with the medication with no side effects, no sedation, no nausea, no extrapyramidal symptoms. I would recommend to continue her medications and need to follow up with the psychiatrist upon discharge. Thank you very much for allowing me to participate in the care of this most interesting lady. However, if the patient starts acting aggressively, she needs to go to [facility]. JOB# [id number]
[2016-11-24] MEDS: Aspirin 81mg Chewable Tab PO SCH (09:41)
[2016-11-24] MEDS ORDERED: Mag Sulfate 2gm/50mL Premix 2 GM/50 ML BAG IV ONE (11:50)
[2016-11-24 12:18] LABS: % BASOPHILS 0.7 % (0.0-2.0); % EOSINOPHILS 0.3 % (0.0-5.0); % LYMPHOCYTES 26.1 % (20.0-50.0); % MONOCYTES 7.9 % (2.0-10.0); HEMATOCRIT 35.9 % (35.0-45.0); MEAN CELL VOLUME 87.9 fl (81-100); MEAN CORPUSCULAR HEMOGLOBIN 29.3 pg (27.0-31.0); MEAN CORPUSCULAR HGB CONC 33.4 pg (28.0-36.0); MEAN PLATELET VOLUME 9.4 fl; NEUTROPHILE ABSOLUTE 4.6 Th/cmm (1.8-8.0); PLATELET COUNT 179 Th/cmm (150-400); RED BLOOD COUNT 4.08 Mil/cmm (3.80-5.10)
[2016-11-24 12:19] LABS: WHITE BLOOD COUNT 7.2 Th/cmm (4.8-10.8)
[2016-11-24 12:35] LABS: ANION GAP 10.4 (7.0-16.0); BUN - UREA NITROGEN 20 mg/dL (7-25); BUN/CREATININE RATIO 22.2; CALCIUM SERUM 9.6 mg/dL (8.6-10.3); CARBON DIOXIDE 21.3 mEq/L (21.0-31.0); CHLORIDE 111 mEq/L (98-107); CREATININE - SERUM 0.9 mg/dL (0.6-1.2); GLUCOSE 100 mg/dL (70-105); MAGNESIUM 1.9 mg/dL (1.9-2.7); POTASSIUM SERUM 3.7 mEq/L (3.5-5.1); SODIUM SERUM 139 mEq/L (136-145)
--- NOTE | 2016-11-24 13:11 | Internal Medicine Prog Note ---
Internal Medicine Subjective - Subjective Patient seen and examined:: with staff, chart reviewed, other (confused) Patient is:: awake, verbal, non-interactive, agitated, confused Patient Complaints of:: congestion Per staff patient has:: no adverse event, poor appetite, poor oral intake, agitated, combative, noncompliant, confused, tolerating meds Internal Medicine Objective - Results Result Diagrams: 11/24/16 12:07 11/24/16 12:07 Recent Labs: Laboratory Last Values WBC 7.2 Th/cmm (4.8-10.8) D 11/24/16 12:07 RBC 4.08 Mil/cmm (3.80-5.10) 11/24/16 12:07 Hgb 12.0 gm/dL (11.7-15.5) 11/24/16 12:07 Hct 35.9 % (35.0-45.0) 11/24/16 12:07 MCV 87.9 fl (81-100) 11/24/16 12:07 MCH 29.3 pg (27.0-31.0) 11/24/16 12:07 MCHC Differential 33.4 pg (28.0-36.0) 11/24/16 12:07 RDW 13.0 % (11.5-20.0) 11/24/16 12:07 Plt Count 179 Th/cmm (150-400) 11/24/16 12:07 MPV 9.4 fl 11/24/16 12:07 Neutrophils % 65.0 % (40.0-80.0) 11/24/16 12:07 Lymphocytes % 26.1 % (20.0-50.0) 11/24/16 12:07 Monocytes % 7.9 % (2.0-10.0) 11/24/16 12:07 Eosinophils % 0.3 % (0.0-5.0) 11/24/16 12:07 Basophils % 0.7 % (0.0-2.0) 11/24/16 12:07 Sodium 139 mEq/L (136-145) 11/24/16 12:07 Potassium 3.7 mEq/L (3.5-5.1) 11/24/16 12:07 Chloride 111 mEq/L (98-107) H 11/24/16 12:07 Carbon Dioxide 21.3 mEq/L (21.0-31.0) 11/24/16 12:07 Anion Gap 10.4 (7.0-16.0) 11/24/16 12:07 BUN 20 mg/dL (7-25) 11/24/16 12:07 Creatinine 0.9 mg/dL (0.6-1.2) 11/24/16 12:07 Est GFR ( Amer) > 60.0 ml/min (>90) 11/24/16 12:07 Est GFR (Non-Af Amer) > 60.0 ml/min 11/24/16 12:07 BUN/Creatinine Ratio 22.2 11/24/16 12:07 Glucose 100 mg/dL (70-105) 11/24/16 12:07 Calcium 9.6 mg/dL (8.6-10.3) 11/24/16 12:07 Magnesium 1.9 mg/dL (1.9-2.7) 11/24/16 12:07 Total Bilirubin 0.4 mg/dL (0.3-1.0) 11/20/16 18:00 AST 19 U/L (13-39) 11/20/16 18:00 ALT 16 U/L (7-52) 11/20/16 18:00 Alkaline Phosphatase 55 U/L (34-104) 11/20/16 18:00 Ammonia 43 umol/L (16-53) 11/24/16 12:07 B-Natriuretic Peptide 50.3 pg/mL (5.0-100.0) 11/24/16 12:07 Total Protein 7.5 gm/dL (6.0-8.3) 11/20/16 18:00 Albumin 4.3 gm/dL (3.7-5.3) 11/20/16 18:00 Globulin 3.2 gm/dL 11/20/16 18:00 Albumin/Globulin Ratio 1.3 (1.0-1.8) 11/20/16 18:00 TSH 18.95 uIU/ml (0.34-5.60) H 11/20/16 18:00 Urine Source RANDOM 11/20/16 18:30 Urine Color YELLOW 11/20/16 18:30 Urine Clarity SLIGHT CLOUDY (CLEAR) 11/20/16 18:30 Urine pH 5.5 (4.6 - 8.0) 11/20/16 18:30 Ur Specific [place] 1.025 (1.005-1.030) 11/20/16 18:30 Urine Protein TRACE mg/dL (NEGATIVE) 11/20/16 18:30 Urine Glucose (UA) NEGATIVE mg/dL (NEGATIVE) 11/20/16 18:30 Urine Ketones NEGATIVE mg/dL (NEGATIVE) 11/20/16 18:30 Urine Blood NEGATIVE (NEGATIVE) 11/20/16 18:30 Urine Nitrate POSITIVE (NEGATIVE) H 11/20/16 18:30 Urine Bilirubin NEGATIVE (NEGATIVE) 11/20/16 18:30 Urine Urobilinogen 1.0 E.U./dL (0.2 - 1.0) 11/20/16 18:30 Ur Leukocyte Esterase TRACE (NEGATIVE) H 11/20/16 18:30 Urine RBC NONE SEEN /hpf (0-5) 11/20/16 18:30 Urine WBC 2-5 /hpf (0-5) 11/20/16 18:30 Ur Epithelial Cells NONE SEEN /lpf (FEW) 11/20/16 18:30 Urine Bacteria MANY /hpf (NONE SEEN) 11/20/16 18:30 - Physical Exam Vitals and I&O: Vital Signs Temp 98 F 11/24/16 12:00 Pulse 78 11/24/16 12:00 Resp 20 11/24/16 12:00 BP 141/83 11/24/16 08:00 Pulse Ox 98 11/24/16 08:16 Intake & Output 11/23/16 11/24/16 11/24/16 18:59 06:59 18:59 Intake Total 500 800 Output Total 0 Balance 500 800 Weight (lbs) 64.864 kg 64.864 kg 64.864 kg Intake: Oral 500 800 Output: Stool 0 Other: # Voids 3 # Bowel Movements 0 Active Medications: Current Medications Acetaminophen (Tylenol) 650 mg PO Q4H PRN PRN Reason: Pain Or Fever above 101 Stop: 01/19/17 22:57 Last Admin: 11/23/16 21:45 Dose: 650 mg Al Hydrox/Mg Hydrox/Simethicone (Maalox) 30 ml PO Q6H PRN PRN Reason: Dyspepsia Stop: 01/19/17 22:57 Albuterol Sulfate (Albuterol 2.5mg/3ml Neb Ud) 2.5 mg HHN Q2HRT PRN PRN Reason: Shortness of Breath or Wheeze Stop: 01/19/17 22:57 Aspirin (Aspirin Chewable) 81 mg PO DAILY [facility] Stop: 01/20/17 08:59 Last Admin: 11/24/16 09:41 Dose: 81 mg Bisacodyl (Dulcolax 10 Mg Supp) 10 mg RC DAILY PRN PRN Reason: Constipation Stop: 01/19/17 22:53 Divalproex Sodium (Depakote Dr) 500 mg PO BID [facility] PRN Reason: Protocol Stop: 01/20/17 08:59 Last Admin: 11/24/16 09:41 Dose: 500 mg Docusate Sodium (Colace) 100 mg PO DAILY [facility] Stop: 01/20/17 08:59 Last Admin: 11/24/16 09:41 Dose: 100 mg Guaifenesin (Robitussin) 200 mg PO Q4HR PRN PRN Reason: Cough or Congestion Stop: 01/19/17 22:57 Heparin Sodium (Porcine) (Heparin) 5,000 units SUBQ Q12HR [facility] Stop: 01/20/17 08:59 Last Admin: 11/24/16 09:45 Dose: 5,000 units Dextrose/Sodium Chloride (D5-0.9%Ns) 1,000 mls @ 80 mls/hr IV .[id number] [facility] Stop: 01/19/17 22:59 Last Admin: 11/24/16 00:21 Dose: 80 mls/hr Magnesium Sulfate (Magnesium Sulfate Premix) 2 gm in 50 mls @ 25 mls/hr IV X1 ONE Stop: 11/24/16 13:49 Ibuprofen (Motrin) 600 mg PO Q6HR PRN PRN Reason: Pain (Moderate) Stop: 01/19/17 22:53 Last Admin: 11/23/16 14:46 Dose: 600 mg Ipratropium [place] (Atrovent Neb 0.5mg/2.5ml) 0.5 mg IH Q2HRT PRN PRN Reason: Shortness of Breath or Wheeze Stop: 01/19/17 22:57 Levofloxacin (Levaquin) 250 mg PO DAILY [facility] Stop: 11/25/16 09:01 Last Admin: 11/24/16 09:40 Dose: 250 mg Lorazepam (Ativan) 0.5 mg PO Q6HR PRN; Protocol PRN Reason: Agitation Stop: 01/19/17 22:53 Last Admin: 11/24/16 09:42 Dose: 0.5 mg Magnesium Hydroxide (Milk Of Magnesia) 30 ml PO DAILY PRN PRN Reason: Constipation Stop: 01/19/17 22:53 Olanzapine (Zyprexa) 20 mg PO DAILY [facility] PRN Reason: Protocol Stop: 01/20/17 08:59 Last Admin: 11/24/16 09:40 Dose: 20 mg Olanzapine (Zyprexa) 10 mg PO HS [facility] PRN Reason: Protocol Stop: 01/20/17 20:59 Last Admin: 11/23/16 21:41 Dose: 10 mg Ondansetron HCl (Zofran) 4 mg IV Q8H PRN PRN Reason: Nausea / Vomiting Stop: 01/19/17 22:57 Last Admin: 11/22/16 23:31 Dose: 4 mg Senna (Senna) 8.6 mg PO DAILY [facility] Stop: 01/20/17 08:59 Last Admin: 11/23/16 09:41 Dose: 8.6 mg Sodium Phosphate (Fleet Enema) 135 ml RC PRN PRN PRN Reason: Constipation Stop: 01/19/17 22:53 Thyroid ([place] Thyroid) 60 mg PO DAILY [facility] Stop: 01/21/17 08:59 Last Admin: 11/24/16 09:40 Dose: 60 mg General: demented, obese, appears older HEENT: NC/AT, PERRLA, EOMI, dry oral mucosa Neck: Supple, No JVD Lungs: congested, rales Cardiovascular: RRR, Normal S1, Normal S2 Abdomen: soft, globular, positive bowel sound Extremities: excoriation, ecchymosis Neurological: no change, disorganized, muscle weakness, unable to follow command Internal Medicine Assmt/Plan - Assessment Assessment: uti pvc gen weakness anemia ri/azotemia hypothyroidism cva sad - Plan Plan: cont on iv abx iv hydration psych follow up card follow up paulina biggs cpm posiible psych transfer
--- NOTE | 2016-11-25 01:54 | Progress Notes ---
DATE: 11/24/2016 Case was discussed with staff of the patient, reviewed records. The patient continues to have poor insight. Continues to have episodes of yelling. She is unpredictable, impulsive, needing redirection, sleeping better, eating better. No side effects with the medication, no sedation, no nausea, no extrapyramidal symptoms. Thank you very much for allowing me to participate in the care of this most interesting lady. [facility]# [id number]
[2016-11-25] MEDS: D5-0.9%NS 1,000 ML IV SCH (06:07)
[2016-11-25] MEDS: Aspirin 81mg Chewable Tab PO SCH (10:01)
--- NOTE | 2016-11-25 13:08 | Discharge Summary ---
DATE OF DISCHARGE: 11/25/2016 CHIEF COMPLAINT: Increasing agitation, generalized weakness, not eating. ASSESSMENT AND PLAN: Urinary tract infection, cardiac arrhythmia, generalized weakness, agitation, anemia, dehydration, renal failure, hypothyroidism, history of stroke, schizoaffective disorder. HISTORY: This is a 61-year-old female with history of schizoaffective disorder, stroke, hypothyroidism, who was admitted from nursing facility secondary to increasing agitation. The patient also noted to have frequent PVCs. The patient admitted for further management. PHYSICAL EXAMINATION: VITAL SIGNS: Blood pressure 120/82, respirations 19, pulse 56 to 82, temperature 97.1. GENERAL: Elderly female, appears her stated age. NECK: Supple. No mass. LUNGS: Equal breath sounds, few rhonchi. HEART: Regular rate and rhythm without appreciable murmurs. ABDOMEN: Soft, nontender. EXTREMITIES: Positive excoriations. NEUROLOGIC: Limited. HOSPITAL COURSE: The patient was admitted to medical floor on telemetry and initially on IV hydration. The patient was seen and referred to Dr. Jeff for Cardiology. for Psychiatry. The patient did finish full course of IV antibiotic and was on DVT prophylaxis. The patient cleared for discharge. DISCHARGE INSTRUCTIONS: To be discharged to residential facility. Follow up with her primary care doctor as well as psychiatrist. [facility]# [id number]
--- NOTE | 2016-11-26 00:44 | Progress Notes ---
DATE: Case was discussed with staff of the patient, reviewed records. The patient have episodes of time where she gets very agitated, sleeping better, eating better, and needing redirection by the staff. She is on 1:1, I would recommend to transfer the patient to [facility] once medically cleared. Thank you very much for allowing me to participate in the care of this most interesting lady. JOB# [id number]
[2016-11-26 05:13] LABS: FOLIC ACID 17.3 ng/mL (>3.0)
[2016-11-26] MEDS: Aspirin 81mg Chewable Tab PO SCH (10:26)
[2016-11-26] MEDS: Miconazole Nitrate 2% Cream 30gm TP SCH ×2 (14:00→20:36)
--- NOTE | 2016-11-26 14:18 | Discharge Summary ---
DATE OF DISCHARGE: 11/26/2016 CHIEF COMPLAINT: Increasing agitation. FINAL DIAGNOSES: Urinary tract infection, cardiac arrhythmia, generalized weakness, agitation, anemia, dehydration, renal failure, hypothyroidism, history of stroke, schizoaffective disorder. HISTORY: This is a 61-year-old male with multiple medical problems, was admitted to medical floor secondary to increasing agitation and frequent PVCs. The patient admitted for further management. PHYSICAL EXAMINATION: VITAL SIGNS: Blood pressure 140/73, respirations 18, pulse 82, temperature 98.7. GENERAL: Elderly female, who appears her stated age. NECK: Supple. No mass. LUNGS: Equal breath sounds, few rhonchi. HEART: Regular rate and rhythm with systolic ejection murmur. ABDOMEN: Soft, nontender. EXTREMITIES: No clubbing, cyanosis or edema. HOSPITAL COURSE: The patient was admitted to the medical floor. The patient was seen by Dr. Garg as well as Dr. Mikel Jeff. The patient's psychotropic medications were adjusted. The patient was cleared for discharge back to the nursing facility by Psychiatry. CONDITION ON DISCHARGE: Fair. DISCHARGE INSTRUCTIONS: The patient to continue current management. We are awaiting a placement ____. JOB# [id number]
--- NOTE | 2016-11-27 00:36 | Progress Notes ---
DATE: 11/26/[address] Vazquez. Case was discussed with staff of the patient, reviewed records. We will have to have her on Ativan as needed because she can get episodes of yelling and screaming. She has been unpredictable, impulsive, needing redirection. She has very poor insight about the whole situation and she is now on Ativan 1 mg every 6 hours as needed and she is already on 15 mg of Zyprexa, which is a good dose with no side effects, no sedation, no nausea. I will be checking her Depakote level. She may need to go back to go the geropsychiatric if she is still acting out and needing redirection and not manageable on this unit. Thank you very much for allowing me to participate in the care of this most interesting lady. JOB# [id number]
[2016-11-27] MEDS: Aspirin 81mg Chewable Tab PO SCH (09:00)
[2016-11-27] MEDS: Miconazole Nitrate 2% Cream 30gm TP SCH ×2 (09:01→20:35)
--- NOTE | 2016-11-27 19:20 | Discharge Summary ---
DATE OF DISCHARGE: 11/27/2016 Discharge has been held secondary to no placement, no new complaints, less agitated, but positive ____ VITAL SIGNS: ____, respirations 18, pulse 67, temperature 97.0. GENERAL: Middle-aged female, appears her stated age. NECK: Supple. No mass. LUNGS: Equal breath sounds with few rhonchi. HEART: Regular rate and rhythm without appreciable murmur. ABDOMEN: Soft, nontender. EXTREMITIES: No clubbing, cyanosis or edema. ASSESSMENT AND PLAN: As above. DISCHARGE INSTRUCTIONS: Continue current management. We will continue to monitor the patient closely. JOB# [id number]
--- NOTE | 2016-11-28 02:07 | Progress Notes ---
DATE: 11/27/2016 Case was discussed with staff of the patient. The patient probably has particular level of functioning. She wants to go home. She is very eager to go home and was anxious to go home. She probably at particular level of functioning. She tends to be sometimes uncooperative with staff. I am not sure if we can get any more progress with her. The patient will be going to SNF Facility. No suicidal ideation. No homicidal ideation. No paranoia. The patient needs to follow up with the psychiatrist upon discharge. She is currently on a good medication. Thank you very much for allowing me to participate in the care of this most interesting lady. JOB# [id number]
[2016-11-28] MEDS: Miconazole Nitrate 2% Cream 30gm TP SCH ×2 (09:40→20:59)
[2016-11-28] MEDS: Aspirin 81mg Chewable Tab PO SCH (09:41)
--- NOTE | 2016-11-28 11:22 | Internal Medicine Prog Note ---
Internal Medicine Subjective - Subjective Patient seen and examined:: with staff, chart reviewed, other (addendum to dc summaries) Patient is:: awake, verbal, non-interactive, agitated, confused Patient Complaints of:: congestion Per staff patient has:: no adverse event, poor appetite, poor oral intake, agitated, combative, noncompliant, confused, tolerating meds Internal Medicine Objective - Results Result Diagrams: 11/24/16 12:07 11/24/16 12:07 Recent Labs: Laboratory Last Values WBC 7.2 Th/cmm (4.8-10.8) D 11/24/16 12:07 RBC 4.08 Mil/cmm (3.80-5.10) 11/24/16 12:07 Hgb 12.0 gm/dL (11.7-15.5) 11/24/16 12:07 Hct 35.9 % (35.0-45.0) 11/24/16 12:07 MCV 87.9 fl (81-100) 11/24/16 12:07 MCH 29.3 pg (27.0-31.0) 11/24/16 12:07 MCHC Differential 33.4 pg (28.0-36.0) 11/24/16 12:07 RDW 13.0 % (11.5-20.0) 11/24/16 12:07 Plt Count 179 Th/cmm (150-400) 11/24/16 12:07 MPV 9.4 fl 11/24/16 12:07 Neutrophils % 65.0 % (40.0-80.0) 11/24/16 12:07 Lymphocytes % 26.1 % (20.0-50.0) 11/24/16 12:07 Monocytes % 7.9 % (2.0-10.0) 11/24/16 12:07 Eosinophils % 0.3 % (0.0-5.0) 11/24/16 12:07 Basophils % 0.7 % (0.0-2.0) 11/24/16 12:07 Sodium 139 mEq/L (136-145) 11/24/16 12:07 Potassium 3.7 mEq/L (3.5-5.1) 11/24/16 12:07 Chloride 111 mEq/L (98-107) H 11/24/16 12:07 Carbon Dioxide 21.3 mEq/L (21.0-31.0) 11/24/16 12:07 Anion Gap 10.4 (7.0-16.0) 11/24/16 12:07 BUN 20 mg/dL (7-25) 11/24/16 12:07 Creatinine 0.9 mg/dL (0.6-1.2) 11/24/16 12:07 Est GFR ( Amer) > 60.0 ml/min (>90) 11/24/16 12:07 Est GFR (Non-Af Amer) > 60.0 ml/min 11/24/16 12:07 BUN/Creatinine Ratio 22.2 11/24/16 12:07 Glucose 100 mg/dL (70-105) 11/24/16 12:07 Calcium 9.6 mg/dL (8.6-10.3) 11/24/16 12:07 Magnesium 2.0 mg/dL (1.9-2.7) 11/25/16 06:23 Total Bilirubin 0.4 mg/dL (0.3-1.0) 11/20/16 18:00 AST 19 U/L (13-39) 11/20/16 18:00 ALT 16 U/L (7-52) 11/20/16 18:00 Alkaline Phosphatase 55 U/L (34-104) 11/20/16 18:00 Ammonia 43 umol/L (16-53) 11/24/16 12:07 B-Natriuretic Peptide 50.3 pg/mL (5.0-100.0) 11/24/16 12:07 Total Protein 7.5 gm/dL (6.0-8.3) 11/20/16 18:00 Albumin 4.3 gm/dL (3.7-5.3) 11/20/16 18:00 Globulin 3.2 gm/dL 11/20/16 18:00 Albumin/Globulin Ratio 1.3 (1.0-1.8) 11/20/16 18:00 Vitamin B12 700 pg/mL (211-946) 11/24/16 12:07 Folic Acid 17.3 ng/mL (>3.0) 11/24/16 12:07 TSH 18.95 uIU/ml (0.34-5.60) H 11/20/16 18:00 Urine Source RANDOM 11/20/16 18:30 Urine Color YELLOW 11/20/16 18:30 Urine Clarity SLIGHT CLOUDY (CLEAR) 11/20/16 18:30 Urine pH 5.5 (4.6 - 8.0) 11/20/16 18:30 Ur Specific Ernest 1.025 (1.005-1.030) 11/20/16 18:30 Urine Protein TRACE mg/dL (NEGATIVE) 11/20/16 18:30 Urine Glucose (UA) NEGATIVE mg/dL (NEGATIVE) 11/20/16 18:30 Urine Ketones NEGATIVE mg/dL (NEGATIVE) 11/20/16 18:30 Urine Blood NEGATIVE (NEGATIVE) 11/20/16 18:30 Urine Nitrate POSITIVE (NEGATIVE) H 11/20/16 18:30 Urine Bilirubin NEGATIVE (NEGATIVE) 11/20/16 18:30 Urine Urobilinogen 1.0 E.U./dL (0.2 - 1.0) 11/20/16 18:30 Ur Leukocyte Esterase TRACE (NEGATIVE) H 11/20/16 18:30 Urine RBC NONE SEEN /hpf (0-5) 11/20/16 18:30 Urine WBC 2-5 /hpf (0-5) 11/20/16 18:30 Ur Epithelial Cells NONE SEEN /lpf (FEW) 11/20/16 18:30 Urine Bacteria MANY /hpf (NONE SEEN) 11/20/16 18:30 Valproic Acid 67.5 ug/mL (50.0-100.0) 11/26/16 11:14 - Physical Exam Vitals and I&O: Vital Signs Temp 98.8 F 11/28/16 08:00 Pulse 100 11/28/16 08:00 Resp 18 11/28/16 08:00 BP 148/91 11/28/16 08:00 Pulse Ox 96 11/28/16 08:00 Intake & Output 11/27/16 11/28/16 11/28/16 18:59 06:59 18:59 Intake Total 400 480 Balance 400 480 Weight (lbs) 66.224 kg 66.224 kg Intake: Oral 400 480 Other: # Voids 4 4 # Bowel Movements 2 Active Medications: Current Medications Acetaminophen (Tylenol) 650 mg PO Q4H PRN PRN Reason: Pain Or Fever above 101 Stop: 01/19/17 22:57 Last Admin: 11/27/16 20:34 Dose: 650 mg Al Hydrox/Mg Hydrox/Simethicone (Maalox) 30 ml PO Q6H PRN PRN Reason: Dyspepsia Stop: 01/19/17 22:57 Albuterol Sulfate (Albuterol 2.5mg/3ml Neb Ud) 2.5 mg HHN Q2HRT PRN PRN Reason: Shortness of Breath or Wheeze Stop: 01/19/17 22:57 Aspirin (Aspirin Chewable) 81 mg PO DAILY [facility] Stop: 01/20/17 08:59 Last Admin: 11/28/16 09:41 Dose: 81 mg Bisacodyl (Dulcolax 10 Mg Supp) 10 mg RC DAILY PRN PRN Reason: Constipation Stop: 01/19/17 22:53 Divalproex Sodium (Depakote Dr) 500 mg PO BID BRENDA PRN Reason: Protocol Stop: 01/20/17 08:59 Last Admin: 11/28/16 09:41 Dose: 500 mg Docusate Sodium (Colace) 100 mg PO DAILY [facility] Stop: 01/20/17 08:59 Last Admin: 11/28/16 09:41 Dose: 100 mg Guaifenesin (Robitussin) 200 mg PO Q4HR PRN PRN Reason: Cough or Congestion Stop: 01/19/17 22:57 Ibuprofen (Motrin) 600 mg PO Q6HR PRN PRN Reason: Pain (Moderate) Stop: 01/19/17 22:53 Last Admin: 11/28/16 09:40 Dose: 600 mg Ipratropium [place] (Atrovent Neb 0.5mg/2.5ml) 0.5 mg IH Q2HRT PRN PRN Reason: Shortness of Breath or Wheeze Stop: 01/19/17 22:57 Lorazepam (Ativan) 1 mg IM Q6HR PRN; Protocol PRN Reason: Agitation Stop: 01/24/17 11:56 Last Admin: 11/28/16 09:59 Dose: 1 mg Magnesium Hydroxide (Milk Of Magnesia) 30 ml PO DAILY PRN PRN Reason: Constipation Stop: 01/19/17 22:53 Miconazole Nitrate (Micatin 2%) 1 appl TP Q12HR BRENDA Stop: 12/03/16 12:59 Last Admin: 11/28/16 09:40 Dose: 1 appl Olanzapine (Zyprexa) 20 mg PO DAILY BRENDA PRN Reason: Protocol Stop: 01/20/17 08:59 Last Admin: 11/28/16 09:41 Dose: 20 mg Olanzapine (Zyprexa) 10 mg PO HS BRENDA PRN Reason: Protocol Stop: 01/20/17 20:59 Last Admin: 11/27/16 20:34 Dose: 10 mg Ondansetron HCl (Zofran) 4 mg IV Q8H PRN PRN Reason: Nausea / Vomiting Stop: 01/19/17 22:57 Last Admin: 11/26/16 21:04 Dose: 4 mg Senna (Senna) 8.6 mg PO DAILY BRENDA Stop: 01/20/17 08:59 Last Admin: 11/28/16 09:41 Dose: 8.6 mg Sodium Phosphate (Fleet Enema) 135 ml RC PRN PRN PRN Reason: Constipation Stop: 01/19/17 22:53 Thyroid (Mcneal Thyroid) 60 mg PO DAILY BRENDA Stop: 01/21/17 08:59 Last Admin: 11/28/16 09:40 Dose: 60 mg General: demented, obese, appears older HEENT: NC/AT, PERRLA, EOMI, dry oral mucosa Neck: Supple, No JVD Lungs: congested, rales Cardiovascular: RRR, Normal S1, Normal S2 Abdomen: soft, globular, positive bowel sound Extremities: excoriation, ecchymosis Neurological: no change, disorganized, muscle weakness, unable to follow command Internal Medicine Assmt/Plan - Assessment Assessment: uti pvc gen weakness anemia ri/azotemia hypothyroidism cva sad - Plan Plan: cont on iv abx iv hydration psych follow up card follow up dw rn cpm posiible psych transfer Nutritional Asmnt/Malnutr-PDOC - Dietary Evaluation Malnutrition Findings (Please click <Entered> for more info): Nutritional Asmnt/Malnutrition Start: 11/26/16 10: 22 Text: Status: Complete Freq: Document 11/26/16 10:22 GSUN (Rec: 11/26/16 10:39 GSUN [email or web address]) Nutritional Asmnt/Malnutrition Patient General Information Nutritional Screening Moderate Risk Screening Diagnosis UTI, cardiac arrhythmia, agitation, renal failure, dehydration, anemia Pertinent Medical Hx/Surgical Hx Schizoaffective disorder, stroke, hypothyrodism Subjective Information 61 year old female from SNF. Pt is often seen crying, unable to complete nutrition interview. Visited pt during lunch time 11/25, observed pt eating spaghetti, slow and requiring assist at times. Pt was asleep this AM. Spoke to DRYING ROOM SUPERVISOR at bedside, DRYING ROOM SUPERVISOR stated pt appears to have difficulties chewing and pockets food. RN Denia is aware, diet texture downgraded to [facility] soft chopped. Avg PO intake 0-75% of meals, not meeting nutritional needs. Pt appear thin, unable to complete physical assessment due to pt easily agitated, no severe muscle fat wasting noted from previous roundings. Current Diet Order/ Nutrition Support [facility] soft chopped Pertinent Medications Colace, MOM, Zofran, Senna, Fleet Enema Pertinent Labs Reviewed. Nutritional Hx/Data Height 1.8 m Height (Calculated Centimeters) 180.3 Current Weight (lbs) 64.637 kg Weight (Calculated Kilograms) 64.6 Weight (Calculated Grams) 00745.9 [place] Body Weight 155 Weight Status Approriate GI Symptoms Difficult in: Chewing Food Allergies No Usual diet at home [place]: SAMI, CCHO, [facility] soft Skin Integrity/Comment: James 17. Rsh buttock groin thigh area. Current %PO Fair (50-74%) Estimated Nutritional Goals BEE in Kcals: Using Current wt Calories/Kcals/Kg CBW 142.5lb/64.8kg Kcals Calculated 1620-1944kcal (25-30kcal/kg) Protein: Using Current wt Protein Calculated 65g (!g/kg) Fluid: ml 1620-1944ml (1ml/kcal) Nutritional Problem 1. Problem Problem Inadequate oral food beverage intake related to Etiology likely cognition aeb Signs/Symptoms: fluctuating PO intake, avg PO intake varies 0-75% since adm Intervention/Recommendation Comments 1. Continue with current diet order. Avg PO intkae fluctuates 0-75%, inadequate. Encourage meals and assist as needed. 2. Monitor diet texture tolerance. Pt noted unable to chew and pocketing food at times. Expected Outcomes/Goals Expected Outcomes/Goals 1. PO intake to meet at least 75% of estimated nutritional needs.
--- NOTE | 2016-11-29 03:18 | Progress Notes ---
DATE: 11/28/2016 Case was discussed with staff of the patient, reviewed records. The patient is much calmer. Apparently, the place who used to have her does not want to take her back because they found that she has a sister; however, part of her issue is ____ wanted to be home and she is unable to formulate a safe plan for self-care because of her mental condition, but this is her basic level of function. We do not expect her to get any better and I think that is how she was doing at the nursing facility. So, today, they have somebody else to come and interview her. When I talked with her, she was calm and cooperative, not yelling or screaming. She is sleeping better, eating better. No side effects with the medication. No sedation, no nausea. She gets Ativan if she gets agitated; actually, much of her agitation is occurring to ____, but she wants to be home. I am not sure if she is going to act going to a new penitentiary because this will be very new to her, and the patient needs to follow up with the psychiatrist upon discharge and it seems this is the best we can do for her. Thank you very much for allowing me to participate in the care of this most interesting lady. JOB# [id number]
== END 2016-11-28 21:06 | disposition home or self-care (01) | DRG 463 ==
LOC: ER 17:19 → TELE 22:00 → MSI 11-23 12:33
PROVIDERS: ADMIT Internal Medicine; ATTEND Internal Medicine
DX: N39.0 Urinary tract infection, site not specified (principal); I42.9 Cardiomyopathy, unspecified; F03.91 Unspecified dementia, unspecified severity, with behavioral disturbance; E83.42 Hypomagnesemia; F25.9 Schizoaffective disorder, unspecified; N19 Unspecified kidney failure; I49.9 Cardiac arrhythmia, unspecified; D64.9 Anemia, unspecified; E03.9 Hypothyroidism, unspecified; I69.30 Unspecified sequelae of cerebral infarction; E86.0 Dehydration; I49.3 Ventricular premature depolarization; I10 Essential (primary) hypertension; E11.9 Type 2 diabetes mellitus without complications; E78.5 Hyperlipidemia, unspecified; F32.9 Major depressive disorder, single episode, unspecified; F17.210 Nicotine dependence, cigarettes, uncomplicated; F41.9 Anxiety disorder, unspecified; Z98.82 Breast implant status; Z98.51 Tubal ligation status; Z88.8 Allergy status to other drugs, medicaments and biological substances
CPT/HCPCS: 36415-UA; 70450-TC; 71010-TC; 80048-TC; 80053-TC; 80164-TC; 81001-TC; 82140-TC; 82607-90; 82746-90; 83735-TC; 83880-TC; 84443-TC; 85025-TC; 87086-90; 93005; 94760; 96374; 96376; J1644; J2060; J2405; J3475; J7030; J7042; J7051; Z7610